=== PATIENT | female | born 1960 | race Caucasian/White ===

== ENCOUNTER → 2021-04-06 | Outpatient (CLI) | payer MEDICARE, BC | LOC: MAMO 10:30 | DX: Z12.31 Encounter for screening mammogram for malignant neoplasm of breast (principal) | CPT/HCPCS: 77063; 77067 ==

== ENCOUNTER → 2021-04-23 | Outpatient (CLI) | payer MEDICARE, BC | LOC: US 14:03 | DX: N95.2 Postmenopausal atrophic vaginitis (principal); N39.0 Urinary tract infection, site not specified ==

== ENCOUNTER → 2021-05-02 | Outpatient (CLI) | payer MEDICARE, BC | LOC: CT 04-27 08:30 | DX: Q62.5 Duplication of ureter (principal) | CPT/HCPCS: 36415; 82565; 84520; Q9967 ==

== ENCOUNTER → 2021-10-16 | Outpatient (CLI) | payer MEDICARE, BC | LOC: CT 08-24 11:00 | DX: D18.03 Hemangioma of intra-abdominal structures (principal) | CPT/HCPCS: 36415; 74170; 82565; 84520; Q9967 ==

== ENCOUNTER → 2022-01-07 | Outpatient (CLI) | payer MEDICARE, BC ==
[2022-01-07 17:09] LABS: BUN/CREATININE RATIO 26 (0-10)
[2022-01-09 12:16] LABS: ALPHA-1-ANTITRYPSIN, SERUM 135 mg/dL (101-187); HBSAG SCREEN Negative (Negative); HEP A AB, IGM Negative (Negative); HEP B CORE AB, IGM Negative (Negative); HEP C VIRUS AB 0.2 (0.0-0.9)
[2022-01-09 14:16] LABS: MITOCHONDRIAL (M2) ANTIBODY <20.0 Units (0.0-20.0)
== END ==
LOC: LAB 15:55
PROVIDERS: Internal Medicine Gastroenterology
DX: R79.89 Other specified abnormal findings of blood chemistry (principal); R94.5 Abnormal results of liver function studies
CPT/HCPCS: 36415; 80053; 80074; 80076; 82103; 82728; 83540; 83550; 86038

== ENCOUNTER → 2022-01-15 | Day surgery (SDC) | payer MEDICARE, BC ==
[~2022-01-15] MED LIST: BIOTIN PO; CRESTOR5 MG PO; MULTI-VITAMIN1 EACH PO; PROBIOTIC PO; PROTONIX40 MG PO; RELAFEN500 MG GT; TUMERIC PO; VITAMIN B12 PO; VITAMIN D PO; ZINC PO
== END | disposition home or self-care (01) ==
LOC: OR 06:33
DX: Z12.11 Encounter for screening for malignant neoplasm of colon (principal); K62.1 Rectal polyp; K21.00 Gastro-esophageal reflux disease with esophagitis, without bleeding; K22.10 Ulcer of esophagus without bleeding; K64.8 Other hemorrhoids; K64.4 Residual hemorrhoidal skin tags; K59.09 Other constipation; D18.03 Hemangioma of intra-abdominal structures; E78.5 Hyperlipidemia, unspecified; E66.3 Overweight; Z68.26 Body mass index [BMI] 26.0-26.9, adult; Z79.899 Other long term (current) drug therapy
CPT/HCPCS: J2001; J2704